=== PATIENT | female | born 1965 | race Hispanic/Latino ===

== ENCOUNTER → 2017-07-26 | Outpatient (CLI) | payer OTHER, MEDICARE | END | disposition home or self-care (01) | LOC: RAH 11:15 | PROVIDERS: ATTEND Family Medicine | DX: Z12.31 Encounter for screening mammogram for malignant neoplasm of breast (principal) | CPT/HCPCS: 77067 ==

== ENCOUNTER → 2021-08-18 | Outpatient (CLI) | payer OTHER, MEDICARE | END | disposition home or self-care (01) | LOC: RAH 09:16 | PROVIDERS: ATTEND Family Medicine | DX: Z12.31 Encounter for screening mammogram for malignant neoplasm of breast (principal) | CPT/HCPCS: 77067 ==

== ENCOUNTER → 2022-09-14 | Outpatient (CLI) | payer OTHER, MEDICARE ==
[~2022-09-14] MED LIST: LISI5TAB21 PO; PANT40TA55 PO
== END | disposition home or self-care (01) ==
LOC: CANSCHCLI → RAH 10:21
PROVIDERS: ATTEND Family Medicine
DX: Z12.31 Encounter for screening mammogram for malignant neoplasm of breast (principal)
CPT/HCPCS: 77067

== ENCOUNTER 2023-05-03 20:09 | Emergency (ER) | payer OTHER, MEDICARE | END 2023-05-03 22:39 | disposition left against medical advice (07) | LOC: EDH 20:09 | DX: R10.9 Unspecified abdominal pain (principal); Z53.21 Procedure and treatment not carried out due to patient leaving prior to being seen by health care provider ==

== ENCOUNTER 2023-05-20 12:42 | Emergency (ER) | payer OTHER, MEDICARE ==
[~2023-05-20] VITALS: Ht 142.2 cm; Wt 32.8 kg
[~2023-05-20 12:42] MED LIST changes: +LEVO25CA4 PO; +METO10TA41 PO
[2023-05-20 13:17] LABS: HEMATOCRIT 42.1 % (36-48); MEAN CORPUSCULAR HGB CONC 32.8 g/dL (32.0-36.0); MEAN CORPUSCULAR VOLUME 100.7 fL (79-99); RED BLOOD CELL COUNT(AUTO) 4.18 MIL/uL (4.00-5.50); RED CELL DISTRIBUTION WIDTH 15.4 % (11.0-15.5); WHITE BLOOD COUNT (AUTO) 5.8 K/uL (4.8-10.8)
[2023-05-20 13:27] LABS: POTASSIUM 4.5 mmol/L (3.5-5.1)
[2023-05-20 13:32] LABS: ALBUMIN 2.9 g/dL (3.5-5.0); BILIRUBIN,TOTAL 0.4 mg/dL (0.2-1.0); TOTAL PROTEIN, SERUM 7.1 g/dL (6.0-8.3)
[2023-05-20 14:56] VITALS: BP 114/38; PULSE 52; RESP 18; O2SAT 100
== END 2023-05-20 14:58 | disposition home or self-care (01) ==
LOC: EDH 12:42
DX: R00.1 Bradycardia, unspecified (principal); Q90.9 Down syndrome, unspecified; E03.9 Hypothyroidism, unspecified; E78.00 Pure hypercholesterolemia, unspecified; Z79.899 Other long term (current) drug therapy; Z98.890 Other specified postprocedural states
CPT/HCPCS: 36415; 80053; 84443; 84484; 85027; 93005

== ENCOUNTER → 2023-10-03 | Outpatient (CLI) | payer OTHER, MEDICARE ==
[~2023-10-03] MED LIST changes: -LEVO25CA4 PO; +LEVO75TA10 PO; -LISI5TAB21 PO; -METO10TA41 PO; -PANT40TA55 PO
== END | disposition home or self-care (01) ==
LOC: RAH 12:38
PROVIDERS: ATTEND Internal Medicine
DX: Z12.31 Encounter for screening mammogram for malignant neoplasm of breast (principal); R92.323 Mammographic fibroglandular density, bilateral breasts; R92.1 Mammographic calcification found on diagnostic imaging of breast
CPT/HCPCS: 77067

== ENCOUNTER 2024-06-15 10:19 | Emergency (ER) | payer OTHER, MEDICARE ==
[~2024-06-15] VITALS: Ht 142.2 cm; Wt 32.7 kg
[~2024-06-15 10:19] MED LIST changes: +CEPH250S PO; +LEVE500S7 PO
--- NOTE | 2024-06-15 11:10 | HMCIMG ---
ABDOMEN SINGLE VIEW INDICATION: Pain COMPARISON: None FINDINGS: Supine view only No abnormal bowel dilation noted. Extensive stool burden. No abnormal calcifications identified. No gross free air detected. IMPRESSION: Constipation without evidence for bowel obstruction.
[2024-06-15] MEDS ORDERED: LACT10SO85 PO (11:17)
--- NOTE | 2024-06-15 11:17 | ERN ---
General Chief Complaint: Constipation Stated Complaint: CONSTIPATION Time Seen by MD: 10:20 Source: family History of Present Illness Initial Comments PATIENT IS A 59-YEAR-OLD FEMALE BROUGHT IN BY FAMILY MEMBERS DUE TO CONSTIPATION. PER FAMILY MEMBER PATIENT HAS BEEN UNABLE TO COMPLETELY GO TO THE RESTROOM FOR A COUPLE OF DAYS. THEY WERE CONCERNED THAT MIGHT BE SOMETHING ELSE GOING ON. PATIENT DID GO COUPLE OF TIMES WERE LITTLE HARD BALLS. NO FEVER OR CHILLS. Allergies: Coded Allergies: No Known Allergies (Unverified Allergy, Unknown, 08/13/22) Home Meds Active Scripts Cephalexin (Keflex 250 mg/5 ml Susp) 250 Mg/5 Ml Oral.susp, 10 ML PO BID for 5 Days, #100 ML 0 Refills Prov:THOMAS TORRES MD 06/04/24 Levetiracetam (Levetiracetam) 500 Mg/5 Ml (5 Ml) Solution, 250 MG PO BID, #300 ML 0 Refills Prov:THOMAS TORRES MD 06/04/24 Reported Medications Levothyroxine Sodium (Levothyroxine Sodium) 75 Mcg Tablet, 75 MCG PO ACBFST, TAB 07/24/23 Past Medical History Past Medical History: Constipation, Hypothyroid Medical History Other: MR,BRADYCARDIA Past Surgical History: Other Surgical History Other: ABD SX, ABD HERNIA REPAIR Social History Social History: Lives with family Female( History) History: Not Applicable ROS Dictation LIMITED REVIEW OF SYSTEMS SECONDARY TO MENTATION Physical Exam Physical Exam Dictation VITAL SIGNS: REVIEWED. GENERAL APPEARANCE: ALERT, ORIENTED BASELINE, NO ACUTE DISTRESS, OBESE. HEAD AND FACE: NON-TRAUMATIC. EYES: PERRL, PINK CONJUNCTIVAS, EYELID NO TRAUMA, ANTERIOR CHAMBER CLEAR. EARS: PINNAS INTACT AND NO SIGNS OF TRAUMA OR ERYTHEMA. EAR CANALS CLEAR AND NO DISCHARGE. TMS NO ERYTHEMA. NOSE: NO DISCHARGE, NO BLEEDING. OROPHARYNX: MOUTH NORMAL, TEETH NO CARIES, TONGUE PINK. PHARYNX CLEAR, NO ERYTHEMA. TONSILS NO EXUDATES, NO ABSCESSES NOTED. MUCOUS MEMBRANE MOIST. NECK: SUPPLE, NON-TENDER, NO THYROMEGALY, NO MASSES, NO JVD, NO BRUITS. BREAST: DEFERRED. CHEST: NO TENDERNESS, NO CREPITUS, NO PARADOXICAL MOVEMENT, NO RETRACTIONS. LUNGS: CLEAR, WELL-VENTILATED, SYMMETRIC, NO RALES, NO WHEEZING, NO RHONCHI, NO STRIDOR, GOOD BREATH SOUNDS BILATERALLY. HEART: REGULAR RATE, REGULAR RHYTHM, NO MURMUR, NO GALLOPS. VASCULAR: NO PERIPHERAL EDEMA. ABDOMEN: SOFT, POSITIVE BOWEL SOUNDS, NONDISTENDED, NO GUARDING, NONTENDER, NO REBOUND, NO MASSES NO HEPATOMEGALY, NO SPLENOMEGALY, NO PEGUERO'S SIGN, NO HERNIAS. RECTAL: DEFERRED. GENITAL: DEFERRED. NEUROLOGICAL: NORMAL SPEECH, GROSS MOTOR FUNCTION INTACT, GROSS SENSORY FUNCTION INTACT. MUSCULOSKELETAL: NECK NONTENDER, FULL RANGE OF MOTION, BACK NONTENDER, FULL RANGE OF MOTION. EXTREMITIES: NONTENDER, FULL RANGE OF MOTION. SKIN: COLOR PINK, DRY, NO TURGOR, NO RASH, NO LACERATIONS, NO ABRASIONS, NO CONTUSIONS. LYMPHATICS: DEFERRED. Results Laboratory and Microbiology Labs Reviewed?: Yes EKG/XRAY/US/CT/MRI X-RAY Comment [place] [address] [place] [address] [id number] IMAGING REPORT Signed PATIENT: ISABEL SEGURA MR#: [id number] : 1965 SEX: F AGE: 59 LOCATION: [facility] ORDER 1031 STATUS: [facility] REPORT#: [id number] SERVICE 1030 REASON: CONSTIPATION ORDERING PHYSICIAN: DAVID BARRIENTOS MD PROCEDURE: ABD 1VW - ABD 1VW ABDOMEN SINGLE VIEW INDICATION: Pain COMPARISON: None FINDINGS: Supine view only No abnormal bowel dilation noted. Extensive stool burden. No abnormal calcifications identified. No gross free air detected. IMPRESSION: Constipation without evidence for bowel obstruction. DICTATED BY: JOÃO BERG MD DATE: 06/15/24 1106 ELECTRONICALLY SIGNED BY: JOÃO BERG MD DATE: 06/15/24 1110 [facility] MDM: DIFFERENTIAL DIAGNOSIS: CONSTIPATION, OBSTRUCTION, PATIENT IS A 59-YEAR-OLD FEMALE BROUGHT IN BY FAMILY MEMBERS DUE TO POSSIBLE CONSTIPATION. X-RAY DID DISCLOSE CONSTIPATION. PATIENT WILL BE DISCHARGED IN STABLE CONDITION WITH A DIAGNOSIS OF CONSTIPATION. ED Course Orders Procedure Category Date Status Time Abd 1vw RAD 06/15/24 Resulted 10:30 Vital Signs Date Time Temp Pulse Resp B/P (MAP) Pulse Ox O2 Delivery O2 Flow Rate FiO2 06/15/24 10:20 97.5 46 18 106/50 100 Room Air DX & DISP Disposition: Discharge Departure Impression: Primary Impression: Constipation Condition: Stable Scripts Lactulose (Lactulose) 10 Gram/15 Ml Solution 30 ML PO BID for constipation, #500 ML 0 Refills Prov: DAVID BARRIENTOS MD 06/15/24 Additional Instructions: FOLLOW-UP WITH PRIMARY CARE PROVIDER IN 1 TO 2 DAYS. TAKE MEDICATIONS DIRECTED HERE IN THE EMERGENCY ROOM. OKAY TO CONTINUE HOME MEDICATIONS UNLESS OTHERWISE DISCUSSED DURING YOUR VISIT IN THE EMERGENCY ROOM TODAY. RETURN TO YOUR NEAREST EMERGENCY ROOM IF SYMPTOMS WORSEN OR IF THERE IS NO IMPROVEMENT. CALL 911 IF YOU NEED IMMEDIATE ASSISTANCE. TAKE TYLENOL [id number] NEEDED AND IF NO CONTRAINDICATIONS ARE PRESENT. INCREASE ORAL HYDRATION. A WOUND CULTURE OR URINE CULTURE WAS ORDERED HERE IN THE EMERGENCY ROOM DEPARTMENT PLEASE FOLLOW-UP WITH PRIMARY CARE PROVIDER AND ADVISE THEM TO GET REPEAT PORTS FROM OUR FACILITY. IF YOU HAD ANY IRAIS WRAP/SPLINTS THAT WERE APPLIED HERE, PLEASE DO NOT REMOVE THEM UNTIL YOU SEE YOUR PRIMARY CARE OR SPECIALTY. REFERRALS: Referrals: CHRISTINE DHILLON MD (PCP) Time of Disposition: 11:17 DAVID BARRIENTOS MD Jun 15, 2024 11:17
[2024-06-15 11:30] VITALS: BP 105/53; PULSE 50; RESP 16; TEMP 97.6; O2SAT 99
[2024-06-15] MEDS: LACTULOSE 20 GM/30 ML UDCUP PO ONE (11:31)
== END 2024-06-15 11:45 | disposition home or self-care (01) ==
LOC: EDH 10:19
DX: K59.00 Constipation, unspecified (principal); E03.9 Hypothyroidism, unspecified; Z98.890 Other specified postprocedural states; Z79.899 Other long term (current) drug therapy
CPT/HCPCS: 74018; 99283

== ENCOUNTER 2025-01-12 10:47 | Emergency (ER) | payer OTHER, MEDICAID ==
[~2025-01-12] VITALS: Ht 142.2 cm; Wt 30.8 kg
[~2025-01-12 10:47] MED LIST changes: +LACT10SO85 PO
--- NOTE | 2025-01-12 10:59 | ERN ---
ED Note History of Present Illness Stated Complaint: SHAKY, FEVER Chief Complaint: Fever Time Seen by MD: 10:51 Dictation: PATIENT IS A 59-YEAR-OLD FEMALE WITH DOWN SYNDROME HERE WITH HER SISTER WITH COMPLAINTS OF HAVING FEVER CHILLS ONSET THIS MORNING. SISTER STATES SHE HAS HAD NO NAUSEA VOMITING NO DIARRHEA NO COUGH NO RUNNY NOSE. HAS NOT HAD ANY COMPLAINTS OF SORE THROAT. APPETITE HAS BEEN DEPRESSED. Allergies: Coded Allergies: No Known Allergies (Unverified Allergy, Unknown, 08/13/22) Home Meds Active Scripts Lactulose (Lactulose) 10 Gram/15 Ml Solution, 30 ML PO BID for constipation, #500 ML 0 Refills Prov:DAVID BARRIENTOS MD 06/15/24 Cephalexin (Keflex 250 mg/5 ml Susp) 250 Mg/5 Ml Oral.susp, 10 ML PO BID for 5 Days, #100 ML 0 Refills Prov:THOMAS TORRES MD 06/04/24 Levetiracetam (Levetiracetam) 500 Mg/5 Ml (5 Ml) Solution, 250 MG PO BID, #300 ML 0 Refills Prov:THOMAS TORRES MD 06/04/24 Reported Medications Levothyroxine Sodium (Levothyroxine Sodium) 75 Mcg Tablet, 75 MCG PO ACBKFST, TAB 07/24/23 Past Medical History Past Medical History: Constipation, Hypothyroid Additional Past Medical Hx: MR,BRADYCARDIA Surgical History: Other Surgical History Other: ABD SX, ABD HERNIA REPAIR Social History: Lives with family History: Not Applicable RN Note Reviewed/Agreed w/PFSH: Yes Review of System Dictation CONSTITUTIONAL: NEGATIVE EXCEPT FOR HPI FEVER CHILLS HEAD/FACE: NEGATIVE EXCEPT FOR HPI EENT: NEGATIVE EXCEPT FOR HPI RESPIRATORY: NEGATIVE EXCEPT FOR HPI GASTROINTESTINAL/ABDOMINAL: NEGATIVE EXCEPT FOR HPI GENITOURINARY: NEGATIVE EXCEPT FOR HPI MUSCULOSKELETAL: NEGATIVE EXCEPT FOR HPI INTEGUMENTARY: NEGATIVE EXCEPT FOR HPI NEUROLOGICAL/PSYCH: NEGATIVE EXCEPT FOR HPI HEMATOLOGIC/LYMPHATIC: NEGATIVE EXCEPT FOR HPI ALL SYSTEMS NEGATIVE, EXCEPT NOTED ABOVE. 13 POINT REVIEW OF SYSTEMS ASSESSED AND ALL NEGATIVE EXCEPT FOR ABOVE. Initial Vital Sign VS Vital Signs Date Time Temp Pulse Resp B/P (MAP) Pulse Ox O2 Delivery O2 Flow Rate FiO2 01/12/25 10:52 101.3 69 18 125/75 98 Room Air 0 01/12/25 13:30 21 Physical Exam Dictation VITAL SIGNS REVIEWED GENERAL APPEARANCE: ALERT, ORIENTED X ANSWERS SIMPLE QUESTIONS APPROPRIATELY. SISTER AT BEDSIDE. HEAD AND FACE: NON-TRAUMATIC. EYES: PERRL, PINK CONJUNCTIVAS, EYELID NO TRAUMA, ANTERIOR CHAMBER WITH ARCUS SENILIS. EARS: PINNAS INTACT AND NO SIGNS OF TRAUMA OR ERYTHEMA EAR CANALS CLEAR AND NO DISCHARGE TM NO ERYTHEMA NOSE: NO DISCHARGE, NO BLEEDING. OROPHARYNX: MOUTH NORMAL, TONGUE PINK, PHARYNX CLEAR,NO ERYTHEMA, TONSILS NO EXUDATES, NO ABSCESSES NOTED, MUCOUS MEMBRANE MOIST NECK: SUPPLE, NON-TENDER, NO THYROMEGALY, NO MASSES, NO JVD, NO BRUITS BREAST:DEFERRED CHEST:NO TENDERNESS, NO CREPITUS, NO PARADOXICAL MOVEMENT, NO RETRACTIONS LUNGS:CLEAR, WELL-VENTILATED, SYMMETRIC, NO RALES, NO WHEEZING, NO RHONCHI, NO STRIDOR, GOOD BREATH SOUNDS BILATERALLY HEART: REGULAR RATE, REGULAR RHYTHM, NO MURMUR, NO GALLOPS VASCULAR: NO PERIPHERAL EDEMA, ABDOMEN: SOFT, POSITIVE BOWEL SOUNDS, NONDISTENDED, NO GUARDING, NONTENDER, NO REBOUND, NO MASSES NO HEPATOMEGALY, NO SPLENOMEGALY, NO PEGUERO'S SIGN, NO HERNIAS. RECTAL: DEFERRED GENITAL: DEFERRED NEUROLOGICAL: NORMAL SPEECH, MOTOR FUNCTION INTACT, SENSORY FUNCTION INTACT MUSCULOSKELETAL: NECK NONTENDER, FULL RANGE OF MOTION, BACK NONTENDER, FULL RANGE OF MOTION, EXTREMITIES: NONTENDER, FULL RANGE OF MOTION SKIN: COLOR PINK, DRY, NO TURGOR, NO RASH, NO LACERATIONS, NO ABRASIONS, NO CONTUSIONS. LYMPHATIC: DEFERRED Results (Laboratory/Radiology) Laboratory/Radiology Laboratory Tests Test 01/12/25 11:30 01/12/25 14:53 01/12/25 15:30 White Blood Count 8.9 K/uL (4.8-10.8) Red Blood Count 4.89 MIL/uL (4.00-5.50) Hemoglobin 16.4 g/dL (12.0-16.0) H Hematocrit 48.8 % (36-48) H Mean Corpuscular Volume 99.8 fL (79-99) H Mean Corpuscular Hemoglobin 33.5 pg (27.0-33.0) H Mean Corpuscular Hemoglobin Concent 33.6 g/dL (32.0-36.0) Red Cell Distribution Width 13.9 % (11.0-15.5) Platelet Count 142 K/uL (130-400) Mean Platelet Volume 9.4 fL (7.5-10.5) Immature Granulocyte % (Auto) 0.2 % (0-1) Neutrophils (%) (Auto) 95.7 % (40.0-77.0) H Lymphocytes (%) (Auto) 1.7 % (21.0-51.0) L Monocytes (%) (Auto) 2.2 % (3.0-13.0) L Eosinophils (%) (Auto) 0.0 % (0.0-8.0) Basophils (%) (Auto) 0.2 % (0.0-5.0) Neutrophils # (Auto) 8.6 K/uL (1.8-7.7) H Lymphocytes # (Auto) 0.2 K/uL (1.0-4.8) L Monocytes # (Auto) 0.2 K/uL (0.1-1.0) Eosinophils # (Auto) 0.00 K/uL (0.00-0.70) Basophils # (Auto) 0.02 K/uL (0.00-0.20) Absolute Immature Granulocyte (auto 0.02 K/uL (0-1) Nucleated Red Blood Cells 0.0 % (0.0-0.19) White Cell Morphology Comment See comments Sodium Level 144 mmol/L (136-145) Potassium Level 3.6 mmol/L (3.5-5.1) Chloride Level 106 mmol/L (101-111) Carbon Dioxide Level 29 mmol/L (21-32) Blood Urea Nitrogen 19 mg/dL (7-18) H Creatinine 0.9 mg/dL (0.5-1.0) Glomerular Filtration Rate Calc 74 mL/min (>90) Random Glucose 109 mg/dL (70-105) H Total Calcium 8.8 mg/dL (8.5-10.1) Influenza Type A Antigen Negative For Type A Influenza Type B Antigen Negative For Type B SARS-CoV-2 Antigen (Rapid) PRESUMPTIVE NEGATIVE Group A Streptococcus Rapid positive (NEGATIVE) *A Urine Color LIGHT-YELLOW (YELLOW) Urine Appearance CLOUDY (CLEAR) H Urine pH 6.0 (5.0-8.0) Urine Specific Cut Off 1.014 (1.001-1.031) Urine Protein NEGATIVE mg/dL (NEGATIVE) Urine Glucose (UA) NEGATIVE mg/dL (NEGATIVE) Urine Ketones NEGATIVE mg/dL (NEGATIVE) Urine Occult Blood NEGATIVE (NEGATIVE) Urine Nitrate NEGATIVE (NEGATIVE) Urine Bilirubin NEGATIVE mg/dL (NEGATIVE) Urine Urobilinogen 0.2 mg/dL (0.2-1.0) Urine Leukocyte Esterase 75 Bull/uL (NEGATIVE) H 1245/chest x-ray negative Labs Reviewed?: Yes ED Course ED Course Orders Procedure Category Date Status Time Covid19 (Sars Antigen LAB 01/12/25 Complete Rapid) 10:56 Influenza Type A & B, LAB 01/12/25 Complete Rapid 10:56 Rapid (Group A Strep) LAB 01/12/25 Complete 10:56 Acetaminophen 500mg PHA 01/12/25 Complete Tab (Tylenol 500mg T 11:00 Cbc With Differential LAB 01/12/25 Complete 10:56 Urinalysis Profile LAB 01/12/25 In Process 10:56 Chest 1vw RAD 01/12/25 Resulted 10:56 Basic Metabolic Panel LAB 01/12/25 Complete 10:56 0.9%Nacl 1000ml (Ns PHA 01/12/25 Complete 1000ml) 11:30 Straight Cath If No CPOE 01/12/25 Transmitted Void X6hrs 15:10 Culture Urine FARRAH 01/12/25 Logged 15:44 Ceftriaxone 1g Vial PHA 01/12/25 Transmitted (Rocephine 1g Inj) 16:00 Current Medications Medications (Trade) Dose Ordered Sig/Skyler Route PRN Reason Start Time Stop Time Status Last Admin Dose Admin Acetaminophen (TYLenol 500MG TAB) 1,000 mg ONCE ONCE PO 01/12/25 11:00 01/12/25 11:01 DC 01/12/25 13:33 Sodium Chloride 1,000 ml @ 0 mls/hr ONCE ONCE IV 01/12/25 11:30 01/12/25 11:31 DC 01/12/25 13:34 Vital Signs Date Time Temp Pulse Resp B/P (MAP) Pulse Ox O2 Delivery O2 Flow Rate FiO2 01/12/25 15:19 98.8 65 17 96/53 94 Room Air* 0 21 01/12/25 13:33 101.8 01/12/25 13:30 101.8 74 22 114/74 97 Room Air* 0 21 01/12/25 10:52 101.3 69 18 125/75 98 Room Air 0 1545/PATIENT POSITIVE FOR STREP THROAT. SHE WILL BE GIVEN ROCEPHIN 1 G IM DISCHARGED HOME WITH AUGMENTIN ELIX DUE TO TROUBLE WITH Medical Decision Making MDM MDM: DIFFERENTIAL DIAGNOSIS: FLU/STREP/SARS COVID/UTI/ELECTROLYTE IMBALANCE/DEHYDRATION RATIONALE: TESTS CONSIDERED AND ORDERED SECONDARY TO SHARED DECISION MAKING INCLUDE: LABS/SWABS PREVIOUS OUTSIDE RECORDS REVIEWED: OLD ER VISITS. RISK OF COMPLICATION AND/OR MORBIDITY OR MORTALITY OF PATIENT MANAGEMENT: NONE MEDICATIONS-PER MEDICATION RECONCILIATION NEED FOR HOSPITALIZATION: PATIENT DOES NOT MEET CRITERIA FOR HOSPITALIZATION. NONE NEED FOR EMERGENCY MAJOR/MINOR SURGERY: NO THERE ARE NO SOCIAL CONCERNS WITH THIS PATIENT. PRESCRIPTION DRUG MANAGEMENT AUGMENTIN 600/5, 10 ML P.O. B.I.D. 10 DAYS PRESCRIPTIONS WILL INCLUDE SYMPTOMATIC CARE PATIENT'S PRIOR EXTERNAL MEDICAL RECORDS FROM OTHER ER VISITS WERE REVIEWED BY ME INDICATED. PRIOR TESTING AND RESULTS FROM PREVIOUS VISITS WERE REVIEWED. PRIOR TESTS WERE TAKEN INTO ACCOUNT WITH MEDICAL DECISION MAKING AND RESOURCE UTILIZATION, INDEPENDENT HISTORIAN/HISTORIANS WERE USED TO OBTAIN COMPLETE MEDICAL HISTORY. I INDEPENDENTLY INTERPRETED THE TEST THAT WERE PERFORMED, RESULTS WERE REVIEWED BY ME AND CONSIDERED FINDINGS ON RADIOLOGY IF ORDERED. MEDICAL MANAGEMENT AND EXAMINATION INTERPRETATION DISCUSSIONS WERE HAD BY ME WITH OTHER QUALIFIED HEALTHCARE PROFESSIONALS INDICATED FOR THE PATIENT'S CARE. DX & DISP Disposition: Discharge Departure Impression: Primary Impression: Acute streptococcal pharyngitis Additional Impressions: Fever, Down syndrome Condition: Stable Scripts Amoxicillin/Potassium Clav (Amox Tr-K Clv 600-42.9/5 Susp) 600 Mg-42.9 Mg/5 Ml Susp.recon 10 ML PO BID for 10 Days, #200 ML 0 Refills Prov: LAYLA BUSH MAJOR DONOR COORDINATOR 01/12/25 Additional Instructions: FOLLOW-UP WITH PRIMARY CARE PROVIDER IN 1 TO 2 DAYS. TAKE MEDICATIONS DIRECTED HERE IN THE EMERGENCY ROOM. OKAY TO CONTINUE HOME MEDICATIONS UNLESS OTHERWISE DISCUSSED DURING YOUR VISIT IN THE EMERGENCY ROOM TODAY. RETURN TO YOUR NEAREST EMERGENCY ROOM IF SYMPTOMS WORSEN OR IF THERE IS NO IMPROVEMENT. CALL 911 IF YOU NEED IMMEDIATE ASSISTANCE. TAKE TYLENOL OR MOTRIN [id number] NEEDED AND IF NO CONTRAINDICATIONS ARE PRESENT. INCREASE ORAL HYDRATION. A WOUND CULTURE OR URINE CULTURE WAS ORDERED HERE IN THE EMERGENCY ROOM DEPARTMENT PLEASE FOLLOW-UP WITH PRIMARY CARE PROVIDER AND ADVISE THEM TO GET REPEAT PORTS FROM OUR FACILITY. IF YOU HAD ANY IRAIS WRAP/SPLINTS THAT WERE APPLIED HERE, PLEASE DO NOT REMOVE THEM UNTIL YOU SEE YOUR PRIMARY CARE OR SPECIALTY. GIVE AUGMENTIN TWICE A DAY DIRECTED. GIVE TYLENOL OR MOTRIN LIQUID [id number] NEEDED FOR FEVER PAIN. SEE YOUR PRIMARY CARE DOCTOR FOR FOLLOW UP. Referrals: CHRISTINE DHILLON MD (PCP) Time of Disposition: 15:47 I have reviewed the case, and I agree with, Diagnosis and Plan LAYLA BUSH NP Jan 12, 2025 10:59
[2025-01-12 11:33] LABS: IMMATURE GRANULOCYTE ABSOLUTE 0.02 K/uL (0-1); NUCLEATED RED BLOOD CELLS 0.0 % (0.0-0.19); PLATELET COUNT (AUTO) 142 K/uL (130-400); RED BLOOD CELL COUNT(AUTO) 4.89 MIL/uL (4.00-5.50); RED CELL DISTRIBUTION WIDTH 13.9 % (11.0-15.5); WHITE BLOOD COUNT (AUTO) 8.9 K/uL (4.8-10.8)
[2025-01-12 11:49] LABS: CREATININE 0.9 mg/dL (0.5-1.0); GLOMERULAR FILTR. RATE CALC 74.0 mL/min (>90); GLUCOSE,RANDOM 109.0 mg/dL (70-105); SODIUM SERUM 144.0 mmol/L (136-145); UREA NITROGEN, BLOOD 19.0 mg/dL (7-18)
--- NOTE | 2025-01-12 12:38 | HMCIMG ---
EXAM: CR Chest, 1 View. CLINICAL HISTORY: SOB/COUGH/FEVER COMPARISON: 05/31 10:22 EST CR - CHEST 1VW FINDINGS: Breast attenuation overlies the lower chest. LUNGS: The lungs show no infiltrate or other acute finding. PLEURAL SPACES: No evidence of pleural effusion or pneumothorax. MEDIASTINUM: The cardiomediastinal silhouette is within normal limits. BONES: No aggressive appearing osseous lesion seen. IMPRESSION: No acute cardiopulmonary pathology is evident. /[place]
--- NOTE | 2025-01-12 13:30 | NUR ---
PATIENT CARE ASSUMED AT THIS TIME.
[2025-01-12] MEDS: 0.9%NACL 1000ML 1,000 ML IV ONE (13:34)
[2025-01-12 14:44] VITALS: TEMP 98.7
[2025-01-12 15:27] LABS: INFLUENZA TYPE A Negative For Type A (NEGATIVE); INFLUENZA TYPE B Negative For Type B (NEGATIVE)
[2025-01-12 15:32] LABS: RAPID GROUP A STREP positive (NEGATIVE)
[2025-01-12 15:39] LABS: COVID19 (SARS ANTIGEN RAPID) PRESUMPTIVE NEGATIVE (NEGATIVE)
[2025-01-12 15:43] LABS: APPEARANCE,URINE CLOUDY (CLEAR); GLUCOSE, URINE (UA) NEGATIVE (NEGATIVE); LEUKOCYTE ESTERASE ,URINE 75 Leu/uL (NEGATIVE); NITRATE,URINE NEGATIVE (NEGATIVE); OCCULT BLOOD,URINE NEGATIVE (NEGATIVE)
[2025-01-12 15:44] LABS: ADD UA MICROSCOPIC YES
[2025-01-12] MEDS ORDERED: AMOX200S10 PO (15:47)
[2025-01-12 16:21] VITALS: BP 102/56; PULSE 68; RESP 17; TEMP 98.7; O2SAT 100
== END 2025-01-12 16:31 | disposition home or self-care (01) ==
LOC: EDH 10:47
DX: J02.0 Streptococcal pharyngitis (principal); R50.9 Fever, unspecified; Q90.9 Down syndrome, unspecified; E03.9 Hypothyroidism, unspecified; Z98.890 Other specified postprocedural states; Z20.822 Contact with and (suspected) exposure to COVID-19
CPT/HCPCS: 99284; 96360; 71045; 87426; 80048; 85025; 87086 ×2; 87186; 87880; 87804 ×2; 81001; 36415; 96372; J7030; J0696

== ENCOUNTER 2025-03-19 10:39 | Emergency (ER) | payer OTHER, MEDICAID ==
[~2025-03-19] VITALS: Ht 142.2 cm; Wt 30.8 kg
--- NOTE | 2025-03-19 10:50 | NUR ---
PT ARRIVED BY POV BROUGHT IN BY AUNT IN LAW FOR C/O CARDIAC ARREST. PT DIRECT BEDDED TO ER BED 8 AND PLACED ON [facility]. PT ASYSTOLE ON MONITOR AND DR CARTY AT THE BEDSIDE AND AUSCULTATED FOR PULSE, NO PULSE. PT IS DNR PER FAMILY AND NO CPR INITIATED. TOD 3101
--- NOTE | 2025-03-19 11:05 | ERN ---
ED Note History of Present Illness Stated Complaint: UNRESPONSIVE Chief Complaint: CPR/Full Arrest Time Seen by MD: 10:41 Dictation: 60-year-old female presenting to the emergency department POV with family after patient became unresponsive and went into cardiac arrest on her way to the doctor's office family reported that patient is a DNR and patient had multiple medical problems including developmental delay seizures and hypothyroidism. Allergies: Coded Allergies: No Known Allergies (Unverified Allergy, Unknown, 08/13/22) Home Meds Active Scripts Amoxicillin/Potassium Clav (Amox Tr-K Clv 600-42.9/5 Susp) 600 Mg-42.9 Mg/5 Ml Susp.recon, 10 ML PO BID for 10 Days, #200 ML 0 Refills Prov:LAYLA BUSH 01/12/25 Lactulose (Lactulose) 10 Gram/15 Ml Solution, 30 ML PO BID for constipation, #500 ML 0 Refills Prov:DAVID BARRIENTOS MD 06/15/24 Cephalexin (Keflex 250 mg/5 ml Susp) 250 Mg/5 Ml Oral.susp, 10 ML PO BID for 5 Days, #100 ML 0 Refills Prov:THOMAS TORRES MD 06/04/24 Levetiracetam (Levetiracetam) 500 Mg/5 Ml (5 Ml) Solution, 250 MG PO BID, #300 ML 0 Refills Prov:THOMAS TORRES MD 06/04/24 Reported Medications Levothyroxine Sodium (Levothyroxine Sodium) 75 Mcg Tablet, 75 MCG PO ACBKFST, TAB 07/24/23 Past Medical History Past Medical History: Hypothyroid, Seizure, Other Additional Past Medical Hx: DOWN SYNDROME, MR, BRADYCARDIA Surgical History: Other Surgical History Other: GASTRIC SX Social History: Lives with family History: Not Applicable Review of System Dictation Unable to obtain due to unresponsive Physical Exam Dictation General: Unresponsive, Head/Face:atraumatic Eyes: Fixed and dilated pupils Neck: Trachea midline, Cardiovascular: No cardiac activity Respiratory: No respiratory effort Abdomen: Soft Skin: Cyanotic MS/Extremity: Pulses equal, no cyanosis, neurovascular intact, FROM Neuro: Unresponsive GCS three, no muscle tone Medical Decision Making MDM 60-year-old female who went into cardiac arrest EN route to her doctor's office, patient arrived POV with family family at bedside reports patient is a DNR and do not wish resuscitative measures, patient was examined and found to be in cardiopulmonary arrest with no signs of life, patient was connected to the monitor and was asystole with no respiratory effort no sedative medication on board and patient was pronounced . 1051, No resuscitation was initiated due to patient wishes and [id number] at bedside DX & DISP Disposition: Departure Impression: Primary Impression: Cardiac arrest Condition: Stable Referrals: CHRISTINE DHILLON MD (PCP) TANK CARTY MD Mar 19, 2025 11:05
--- NOTE | 2025-03-19 12:21 | NUR ---
PT TRANSPORTED TO [facility] BY SECURITY AT THIS TIME.
== END 2025-03-19 12:24 ==
LOC: EDH 10:39
DX: I46.9 Cardiac arrest, cause unspecified (principal); E03.9 Hypothyroidism, unspecified; Q90.9 Down syndrome, unspecified
CPT/HCPCS: 99285